=== PATIENT | male | born 1985 | race Caucasian/White ===

== ENCOUNTER 2020-11-12 08:32 | Emergency (ER) | payer SELFPAY ==
[~2020-11-12] VITALS: Ht 193 cm; Wt 80.5 kg
[2020-11-12] MEDS ORDERED: FAMOTIDINE 20 MG/2 ML IVPush ONE (09:00)
[2020-11-12] MEDS ORDERED: ONDANSETRON 2MG/ML, 2ML IVPush ONE (09:00)
[2020-11-12] MEDS ORDERED: SODIUM CHLORIDE FLUSH 10ML SYR IVF ONE (09:00)
--- NOTE | 2020-11-12 09:04 | NUR ---
PT AMBULATED TO ROOM FROM TRIAGE. PT CO ABDOMINAL PAIN THAT WRAPS AROUND TO BACK SINCE 0230 THIS MORNING. PT STATED THAT HE HAS VOMITED THREE TIMES THIS MORNING. DENIES ANY DIARRHEA, FEVER OR BLOOD IN VOMIT.
[2020-11-12 09:05] LABS: BASOPHILS % (AUTO) 1 % (0-1); EOSINOPHILS % (AUTO) 1 % (1-7); LYMPHOCYTES % (AUTO) 31 % (22-44); MEAN CORPUSCULAR HEMOGLOBIN 36.9 pg (27.5-34.5); MEAN CORPUSCULAR HGB CONC 35.6 g/dL (33.2-36.2); MEAN PLATELET VOLUME 6.6 fL (7.4-10.4); MONOCYTES % (AUTO) 11 % (2-9); NEUTROPHILS % (AUTO) 57 % (42-75); PLATELET COUNT 179 x10^3/uL (130-400); RED BLOOD COUNT 5.02 x10^6/uL (4.38-5.82); RED CELL DISTRIBUTION WIDTH 13.3 % (9.4-14.8)
[2020-11-12] MEDS ORDERED: ONDANSETRON 2MG/ML, 2ML ONE (09:08)
[2020-11-12] MEDS ORDERED: MORPHINE SULFATE 4 MG/ML, 1ML ONE ×2 (09:09→09:49)
[2020-11-12] MEDS ORDERED: FAMOTIDINE 20 MG/2 ML ONE (09:09)
[2020-11-12] MEDS: MORPHINE SULFATE 4 MG/ML, 1ML IVPush PRN ×2 (09:11→09:52)
--- NOTE | 2020-11-12 09:15 | NUR ---
PT TO CT
[2020-11-12 09:16] LABS: ALANINE AMINOTRANSFERASE 118 U/L (12-78); ANION GAP 12 mmol/L (5-15); CALCIUM 8.8 mg/dL (8.5-10.1); CHLORIDE 109 mmol/L (98-107)
[2020-11-12 09:18] LABS: ALKALINE PHOSPHATASE 88 U/L (45-117); BILIRUBIN,TOTAL 0.6 mg/dL (0.2-1.0); HEMOGRAM NOTE RECHECKED; TOTAL PROTEIN 6.9 g/dL (6.4-8.2)
[2020-11-12] MEDS ORDERED: SODIUM CHLORIDE 0.9% 1,000ML IVBOLUS ONE ×2 (09:30→11:00)
--- NOTE | 2020-11-12 09:40 | NUR ---
US AT BEDSIDE
[2020-11-12 10:00] VITALS: BP 141/107
--- NOTE | 2020-11-12 10:50 | NUR ---
WAQAS RUDD AT BEDSIDE.
--- NOTE | 2020-11-12 11:23 | NUR ---
DISCHARGE INSTRUCTIONS REVIEWED WITH PT. ALL QUESTIONS ANSWERED AT THIS TIME.
== END 2020-11-12 11:25 | disposition home or self-care (01) ==
LOC: ED 08:54
DX: K85.20 Alcohol induced acute pancreatitis without necrosis or infection (principal); K70.10 Alcoholic hepatitis without ascites; R74.8 Abnormal levels of other serum enzymes; D75.89 Other specified diseases of blood and blood-forming organs; R71.8 Other abnormality of red blood cells
CPT/HCPCS: 36415; 74176; 76700; 80053; 83690; 85025; 93005; 96361; 96374; 96375; 96376; 99285; J2270; J2405; J7030